=== PATIENT | male | born 1955 | race Caucasian/White ===

== ENCOUNTER 2017-01-29 11:17 | Day surgery (SDC) | payer OTHER ==
[~2017-01-29 11:17] MED LIST: ACTOS30 MG; ACTOS30 MG PO; AMARYL2 MG PO; ATACAND HCT 16/1 TAB; BENICAR HCT 401 EACH PO; CYMBALTA60 M1 PO; EXTRA STRENGTH500 M1 PO; EYE DROPS EACH EYE; FERROUS SULFATE1 TAB; JARDIANCE25 MG PO; LOSARTAN-HCTZ1 EACH PO; NABUMETONE500 M1 PO; NEURONTIN300 M1 PO; NEURONTIN600 M1 PO; OMEPRAZOLE20 M4 PO; ONGLYZA5 MG PO; TRADJENTA5 MG PO; TRAMADOL HCL50 M1 PO; TRAMADOL HCL50 MG; TYLENOL EXTRA500 MG PO; VICODIN 5/500 T1 TAB PO; VICODIN ES 7.51 EACH PO; VITAMIN B1250 MCG; VITAMIN D1000 UNI1 PO; VITAMIN D50000 UNI2 PO; XALATAN2.5 M1 EACH EYE
[2017-01-30] MEDS ORDERED: NORCO 5-325 TA1 EACH PO (14:58)
[2017-07-09] MEDS ORDERED: LEVOTHYROXINE200 MC4 PO (16:43)
[2017-07-09] MEDS ORDERED: LEVOTHYROXINE25 MC3 PO (16:44)
== END 2017-01-30 15:00 ==
LOC: SHSA 11:17 → ORW 14:08 → PACU 17:23 → 5WD 18:10
PROC: 0GTK0ZZ Resection of Thyroid Gland, Open Approach (ICD-10-PCS; principal; 2017-01-29)
DX: E04.2 Nontoxic multinodular goiter (principal); D34 Benign neoplasm of thyroid gland; I10 Essential (primary) hypertension; I73.9 Peripheral vascular disease, unspecified; E78.5 Hyperlipidemia, unspecified; E11.9 Type 2 diabetes mellitus without complications; F41.9 Anxiety disorder, unspecified; N40.0 Benign prostatic hyperplasia without lower urinary tract symptoms; K21.9 Gastro-esophageal reflux disease without esophagitis; G47.30 Sleep apnea, unspecified; Z87.891 Personal history of nicotine dependence; Z88.8 Allergy status to other drugs, medicaments and biological substances; Z90.49 Acquired absence of other specified parts of digestive tract; Z98.890 Other specified postprocedural states
CPT/HCPCS: J0690; J2270; J2405; J2550; J7030